=== PATIENT | female | born 1985 | race African-American/Black ===

== ENCOUNTER 2022-12-10 10:08 | Emergency (ER) | payer MEDICAID ==
[~2022-12-10] VITALS: Ht 165.1 cm; Wt 157.0 kg
[2022-12-10] MEDS ORDERED: SODIUM CHLORIDE 0.9% 1,000 ML IV ONE (10:30)
[2022-12-10] MEDS ORDERED: METOCLOPRAMIDE HCL 5MG/ml INJ 2ml VIAL IV ONE (10:30)
[2022-12-10 10:57] VITALS: BP 131/54; PULSE 78; RESP 15; TEMP 97.9; O2SAT 99
[2022-12-10 10:59] LABS: Basophils # (auto) 0.1 10 ^3/uL (0-0.2); Basophils % (auto) 1.3 % (0.0-2.0); Eosinophils # (auto) 0.2 10 ^3/uL (0-0.8); Hemoglobin 11.6 g/dL (12.2-16.2); Mean Corpuscular Hemoglobin 25.7 pg (28.0-32.0); Monocytes # (auto) 0.5 10 ^3/uL (0-1.3); Monocytes % (auto) 7.5 % (0.0-12.0); Red Cell Distribution Width 17.1 % (11.8-14.3)
[2022-12-10 11:01] LABS: Eosinophils % (auto) 2.3 % (0.0-7.0); Hematocrit 36.1 % (36.0-46.0); Lymphocytes # (auto) 2.3 10 ^3/uL (0.4-5.4); Lymphocytes % (auto) 32.5 % (10.0-50.0); Mean Corpuscular Hgb Conc. 32.2 g/dL (32.0-36.0); Mean Corpuscular Volume 79.8 fL (80.0-100.0); Neutrophils % (auto) 56.4 % (37.0-80.0); Red Blood Cells 4.52 10^6/uL (4.0-5.20); White Blood Cell 7.1 10^3/uL (4.4-10.8)
[2022-12-10 11:02] LABS: Urine Bacteria NONE SEEN /hpf (None Seen); Urine Blood Negative /uL (Negative); Urine Clarity Clear (Clear); Urine Color Colorless (Yellow); Urine Protein, UAD Negative (Negative); Urine Specific Gravity 1.009 (1.001-1.035); Urine Urobilinogen Normal (Negative); Urine WBC 1 /hpf (0 - 5); Urine pH 7.5 (5.0-8.0)
[2022-12-10 11:14] LABS: Alanine Aminotransferase 13 U/L (7-40); Albumin 4.3 g/dL (3.2-4.8); Alkaline Phosphatase 79 U/L (46-116); Anion Gap 7 (5-15); Aspartate Aminotransferase < 8 U/L (13-40); BUN/Creatinine Ratio 9.8 (10.0-20.0); Blood Urea Nitrogen 6 mg/dL (9-23); Calcium 9.3 mg/dL (8.7-10.4); Carbon Dioxide 25 mmol/L (20-30); Chloride 106 mmol/L (98-107); Glucose 106 mg/dL (74-106); Magnesium 1.6 mg/dL (1.6-2.6); Sodium 138 mmol/L (136-145)
[2022-12-10 11:15] LABS: Bilirubin, Total 0.3 mg/dL (0.2-1.0); Total Protein 7.1 g/dL (5.7-8.2)
[2022-12-10] MEDS ORDERED: ZOFR4T PO (11:51)
[2022-12-10] MEDS ORDERED: BISM262C44 PO (11:51)
== END 2022-12-10 12:22 | disposition home or self-care (01) ==
LOC: ER 10:08
DX: K52.9 Noninfective gastroenteritis and colitis, unspecified (principal); R10.2 Pelvic and perineal pain; D50.9 Iron deficiency anemia, unspecified; R10.31 Right lower quadrant pain; R10.32 Left lower quadrant pain; E66.9 Obesity, unspecified; Z68.43 Body mass index [BMI] 50.0-59.9, adult; Z98.890 Other specified postprocedural states; Z79.899 Other long term (current) drug therapy
CPT/HCPCS: 36415; 80053; 81001; 83735; 84702; 85025; 96361; 96374; 99283; J2765; J7030

== ENCOUNTER 2023-04-11 08:43 | Emergency (ER) | payer MEDICAID ==
[~2023-04-11] VITALS: Ht 165.1 cm; Wt 157.9 kg
[~2023-04-11 08:43] MED LIST: BISM262C44 PO; ZOFR4T PO
[2023-04-11 09:17] VITALS: BP 130/69; PULSE 82; RESP 18; TEMP 97.6; O2SAT 98
[2023-04-11] MEDS ORDERED: MELO-335 PO (09:32)
[2023-04-11] MEDS: KETOROLAC TROMETH 60MG/2ML VIAL IM ONE (09:32)
== END 2023-04-11 09:40 | disposition home or self-care (01) ==
LOC: ER 08:43
DX: D23.22 Other benign neoplasm of skin of left ear and external auricular canal (principal); Z86.2 Personal history of diseases of the blood and blood-forming organs and certain disorders involving the immune mechanism; Z79.899 Other long term (current) drug therapy
CPT/HCPCS: 96372; 99283; J1885